=== PATIENT | female | born 1990 | race African-American/Black ===

== ENCOUNTER 2018-08-31 17:17 | Emergency (ER) | payer MEDICAID ==
--- NOTE | 2018-08-31 17:43 | ER Report ---
History and Physical Time Seen By MD: 17:43 Hx. of Stated Complaint: RIGHT EYE SWELLING. WAS SEEN AT URGENT CARE ON THE OTHER DAY, STARTED ON A CREAM. EYE BECAME MORE SWOLLEN TODAY. PT HAS HEADACHE. HPI/ROS CHIEF COMPLAINT: Facial swelling HISTORY OF PRESENT ILLNESS: This is a 28-year-old female presents to emergency department for right facial swelling. Patient states that she was at urgent care earlier this week, diagnosed with an eyelid infection, she was given some erythromycin ointment which she's been using however the surrounding area has increased in size and is uncomfortable. There is swelling to the upper and lower lids and surrounding edema to the right cheek. No loss of vision. She does state that the skin feels warm. No documented fevers at home. No nausea vomiting. No chest pain or shortness of breath. REVIEW OF SYSTEMS: Respiratory: No cough, no dyspnea. Cardiovascular: No chest pain, no palpitations. Gastrointestinal: No vomiting, no abdominal pain. Musculoskeletal: No back pain. ENT: As above. Integument: As above. Home Meds Active Scripts Doxycycline Hyclate (DOXYCYCLINE HYCLATE) 100 Mg Tablet.dr, 100 MG PO BID for 7 Days, #14 TAB 0 Refills Prov:CELSA GONZALEZ TRAVELING REPRESENTATIVE-BC 08/31/18 Past Medical/Surgical History Patient has a past medical surgical history of headaches, pneumonia, hysterectomy. Reviewed Nurses Notes: Yes Constitutional Vital Sign - Last 24 Hours 08/31/18 08/31/18 08/31/18 08/31/18 17:17 17:22 17:23 17:30 Temp 98.4 Pulse ??? 84 Resp 16 B/P (MAP) 148/92 (110) 148/92 124/85 (98) Pulse Ox 96 O2 Delivery Room Air 08/31/18 08/31/18 08/31/18 08/31/18 17:47 18:00 18:17 18:30 Pulse 87 83 B/P (MAP) 120/77 (91) 117/80 (92) Pulse Ox 96 93 08/31/18 18:47 Pulse 81 Pulse Ox 94 Physical Exam General Appearance: The patient is alert, has no immediate need for airway protection and no current signs of toxicity. Eyes: Pupils equal and round no injection. Edema to the right eyelid upper and lower, with swelling to the surrounding tissue up and the right upper cheek. No visual changes or visual loss. EOMs intact. Respiratory: Chest is non tender, lungs are clear to auscultation. Cardiac: regular rate and rhythm. Gastrointestinal: Abdomen is soft and non tender, no masses, bowel sounds normal. Musculoskeletal: Neck: Neck is supple and non tender. Extremities have full range of motion and are non tender. Skin: No rashes or lesions. DIFFERENTIAL DIAGNOSIS: After history and physical exam differential diagnosis was considered for cellulitis, stye, preseptal hematoma, dental abscess. Medical Decision Making ED Course/Re-evaluation ED Course The patient was admitted to room. A history and physical were obtained. Differential diagnoses were considered. After an evaluation of the patient did administer 1 g of Rocephin, patient tolerated well, she was also sent home on doxycycline, I did instruct the patient follow up with her primary care provider early next week for reevaluation, return to the ER for any concerns or worsening symptoms. Patient was understanding and was discharged home. I also instructed the patient to not use the erythromycin ointment. Decision to Disposition Date: Aug 31, 2018 Decision to Disposition Time: 18:44 Depart Departure Latest Vital Signs Vital Signs Date Time Temp Pulse Resp B/P (MAP) Pulse Ox O2 Delivery O2 Flow Rate FiO2 08/31/18 18:47 81 94 08/31/18 18:30 117/80 (92) 08/31/18 17:23 98.4 16 Room Air Impression: Primary Impression: Orbital cellulitis Condition: Improved Disposition: HOME OR SELF-CARE New Scripts Doxycycline Hyclate (DOXYCYCLINE HYCLATE) 100 Mg Tablet.dr 100 MG PO BID for 7 Days, #14 TAB 0 Refills Prov: CELSA GONZALEZ 08/31/18 Patient Instructions: Orbital Cellulitis (ED) Additional Instructions: Stop taking the erythromycin ointment for your eye and start taking the doxycycline as prescribed. Continue to apply warm compresses to the eye several times a day. You can take ibuprofen or Tylenol as needed for discomfort. Be sure to drink plenty of water. Get plenty of rest. Return to the ER for worsening symptoms or any other concerns or may have. Problem Qualifiers Primary Impression: Orbital cellulitis Laterality: right Qualified Codes: H05.011 - Cellulitis of right orbit CELSA GONZALEZ Aug 31, 2018 17:43
[2018-08-31] MEDS ORDERED: LIDOCAINE 1% MDV 200 MG/20 ML INJ ONE (18:00)
[2018-08-31] MEDS ORDERED: cefTRIAXone 1 GM VIAL IM ONE (18:00)
[2018-08-31] MEDS ORDERED: DOXY-228 PO (18:27)
[2018-08-31 18:30] VITALS: BP 117/80
== END 2018-08-31 18:52 | disposition home or self-care (01) ==
LOC: ER 17:37
DX: H05.011 Cellulitis of right orbit (principal)
CPT/HCPCS: 96372; 99283; J0696; J2001

== ENCOUNTER 2018-09-05 09:11 | Emergency (ER) | payer MEDICAID ==
[~2018-09-05 09:11] MED LIST: DOXY-228 PO
[2018-09-05 09:30] VITALS: BP 127/87
--- NOTE | 2018-09-05 09:31 | ER Report ---
History and Physical Time Seen By MD: 09:20 Hx. of Stated Complaint: PATIENT HAS AN AREA OF SWELLING ON HER RIGHT EYELID. SHE WAS PRESCRIBED AN ANTIBIOTIC ON THE AND REPORTS THAT SHE HAS 2 DAYS LEFT HPI/ROS CHIEF COMPLAINT: Eye infection HISTORY OF PRESENT ILLNESS: 28-year-old female comes back to the emergency department was seen here approximately 5 days ago diagnosed with lid infection most likely a cellulitic abscess on her right lid of her right eye is put on doxycycline as well as topical gentamicin drops adequately has been doing warm compresses which has brought the infection to ahead she is here to have the infection lanced in the pus drained no visual acuity changes no additional complaints noted REVIEW OF SYSTEMS: Respiratory: No cough, no dyspnea. Cardiovascular: No chest pain, no palpitations. Gastrointestinal: No vomiting, no abdominal pain. Musculoskeletal: No back pain. Remainder of the 14 system rev: Yes Allergies: Coded Allergies: erythromycin base (Verified Allergy, Intermediate, 09/05/18) Home Meds Active Scripts Doxycycline Hyclate (DOXYCYCLINE HYCLATE) 100 Mg Tablet.dr, 100 MG PO BID for 7 Days, #14 TAB 0 Refills Prov:CELSA GONZALEZ VISITOR SERVICES ASSISTANT-BC 08/31/18 Reviewed Nurses Notes: Yes Old Medical Records Reviewed: Yes Constitutional Vital Sign - Last 24 Hours 09/05/18 09:16 Temp 98.2 Pulse 97 Resp 20 B/P (MAP) 134/86 Pulse Ox 96 O2 Delivery Room Air Physical Exam General appearance: Alert no distress. Respiratory: Chest is non tender, lungs are clear to auscultation. Cardiac: Regular rate and rhythm [ ] I examination no periorbital edema no orbital cellulitis extraocular motion pain or tenderness has a large 2 x 2 centimeter abscess formation on the right eyelid otherwise unremarkable exam DIFFERENTIAL DIAGNOSIS: After history and physical exam differential diagnosis was considered for eyelid infection Medical Decision Making ED Course/Re-evaluation ED Course ED course procedural note Patient had a sterile 21-gauge needle inserted into the abscess with good purulent drainage patient tolerated well Patient will continue on antibiotics. Primary care status post drainage also advised to continue warm compresses Decision to Disposition Date: September 05, 2018 Decision to Disposition Time: 09:30 Depart Departure Latest Vital Signs Vital Signs Date Time Temp Pulse Resp B/P (MAP) Pulse Ox O2 Delivery O2 Flow Rate FiO2 09/05/18 09:16 98.2 97 20 134/86 96 Room Air Impression: Primary Impression: Orbital cellulitis Condition: Improved Disposition: HOME OR SELF-CARE Referrals: BRAXTON PRITCHARD MD 5 Days Patient Instructions: Orbital Cellulitis (DC) NELY BUTLER MD September 05, 2018 09:31
== END 2018-09-05 09:35 | disposition home or self-care (01) ==
LOC: ER 09:18
DX: H05.011 Cellulitis of right orbit (principal)
CPT/HCPCS: 99282

== ENCOUNTER 2018-09-19 10:12 | Emergency (ER) | payer OTHER, MEDICAID ==
[2018-09-19 10:24] VITALS: BP 125/77
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
== END 2018-09-19 11:07 | disposition home or self-care (01) ==
LOC: ER 10:44
DX: M62.838 Other muscle spasm (principal)
CPT/HCPCS: 99282